=== PATIENT | female | born 1935 | race Caucasian/White ===

== ENCOUNTER 2023-02-25 17:18 | Inpatient (IN) | payer OTHER, MEDICARE ==
[2023-02-25] MEDS ORDERED: ACETAMINOPHEN 325 MG TABLET (FP) PO ONE (17:33)
[2023-02-25] MEDS ORDERED: IBUPROFEN 600 MG TABLET (FP) PO ONE ×2 (17:33→17:46)
[2023-02-25] MEDS ORDERED: ACETAMINOPHEN 325 MG TABLET (FP) ONE (17:46)
[2023-02-25] MEDS ORDERED: KETOROLAC TROMETHAMINE 60 MG/2 ML VIAL IM ONE (20:04)
[2023-02-25] MEDS ORDERED: KETOROLAC TROMETHAMINE 15 MG/ML VIAL ONE (20:07)
[2023-02-25] MEDS ORDERED: morphine CARPU-JECT 2 MG/1 ML DISP.SYRIN IVPUSH ONE (21:11)
[2023-02-25] MEDS ORDERED: morphine SULFATE 4 MG/ML VIAL ONE (21:28)
[2023-02-25 21:30] LABS: HEMATOCRIT 42.8 % (32.4-45.2); HEMOGLOBIN 14.5 G/dL (10.7-15.3); MCH 33.1 pg (25.7-33.7); MCHC 33.8 g/dl (32.0-36.0); MEAN PLT VOLUME 7.9 fl (7.5-11.1); PLATELET COUNT 285.8 10^3/uL (134-434); RBC 4.37 10^6/uL (3.60-5.2); RDW 13.4 % (11.6-15.6); WHITE BLOOD COUNT 13.8 10^3/uL (4.0-10.8)
[2023-02-25 21:42] LABS: PLATELET ESTIMATE ADEQUATE
[2023-02-25 21:42] LABS: ALBUMIN 4.2 g/dl (3.4-5.0); BILIRUBIN,TOTAL 0.9 mg/dl (0.2-1); CALCIUM 10.2 mg/dl (8.5-10); POTASSIUM 4.4 mmol/L (3.5-5.1); TOT PROT 7.1 g/dl (6.4-8.2)
[2023-02-25 22:48] VITALS: BMI 24.3
[2023-02-26] MEDS ORDERED: ACETAMINOPHEN 325 MG TABLET (FP) PO PRN ×2 (00:10→09:44)
[2023-02-26] MEDS: ATENOLOL 25 MG TABLET (FP) PO SCH ×2 (06:21→07:51)
[2023-02-26] MEDS ORDERED: LEVOTHYROXINE NA 100 MCG TABLET (FP) PO SCH (07:00)
[2023-02-26 08:35] LABS: CALCIUM 9.7 mg/dl (8.5-10)
[2023-02-26] MEDS ORDERED: ACETAMINOPHEN 1000 MG/100 ML BAG IVPB PRN (09:40)
[2023-02-26] MEDS ORDERED: oxyCODONE HCL 5 MG TABLET PO PRN (09:49)
[2023-02-26] MEDS ORDERED: LIDOCAINE 5% TOPICAL PATCH TP SCH (10:00)
[2023-02-26] MEDS ORDERED: PANTOPRAZOLE 40 MG TABLET PO SCH (10:00)
[2023-02-26] MEDS ORDERED: PANTOPRAZOLE 20 MG TABLET PO SCH (10:00)
[2023-02-26 10:24] LABS: BASO % 1.1 % (0-2.0); HEMATOCRIT 36.7 % (32.4-45.2); HEMOGLOBIN 12.7 GM/dL (10.7-15.3); MCH 32.7 pg (25.7-33.7); MCHC 34.6 g/dl (32.0-36.0); MEAN CELL VOLUME 94.4 fl (80-96); MONO % 9.3 % (3.8-10.2); NEUT % 65.6 % (42.8-82.8); PLATELET COUNT 246 10^3/uL (134-434); RBC 3.89 M/mm3 (3.60-5.2); RDW 13.3 % (11.6-15.6); WHITE BLOOD COUNT 7.5 K/mm3 (4.0-10.0)
[2023-02-26] MEDS: ACETAMINOPHEN 1000 MG/100 ML BAG IVPB PRN ×2 (10:34→17:44)
[2023-02-26] MEDS: LOSARTAN POTASSIUM 50 MG TABLET PO SCH ×2 (10:38→22:57)
[2023-02-26] MEDS: HEPARIN NA (PORCINE) 5,000 UNITS/ML 1ML VIAL SQ SCH ×2 (14:18→22:51)
[2023-02-26] MEDS ORDERED: LIDOCAINE PATCH REMOVAL MC SCH (22:00)
[2023-02-26 22:34] VITALS: BP 187/56; PULSE 58; RESP 18; TEMP 97.8
[2023-02-27] MEDS ORDERED: LEVOTHYROXINE NA 100 MCG TABLET (FP) PO SCH (07:00)
== END 2023-02-26 23:00 | DRG 536 ==
LOC: FER 17:18 → FM/S 22:06 → INTOOBSV 22:06 → UNDOADMIN 22:06 → OBSVTOIN 02-26 10:09
PROVIDERS: ADMIT Internal Medicine
DX: S32.591A Other specified fracture of right pubis, initial encounter for closed fracture (principal); S32.19XA Other fracture of sacrum, initial encounter for closed fracture; I10 Essential (primary) hypertension; E78.5 Hyperlipidemia, unspecified; E03.9 Hypothyroidism, unspecified; K21.9 Gastro-esophageal reflux disease without esophagitis; G89.29 Other chronic pain; F41.9 Anxiety disorder, unspecified; W01.0XXA Fall on same level from slipping, tripping and stumbling without subsequent striking against object, initial encounter; Y92.098 Other place in other non-institutional residence as the place of occurrence of the external cause
CPT/HCPCS: 0241U-QW; 36415; 70450-TC; 71045-TC-FY; 72125-TC; 72170-TC-FY; 72192-TC; 73502-TC-RT-FY; 73552-TC-RT-FY; 80048; 80053; 81003; 85025; 85027; 93005; 97116-GP; 97162-GP; 99285-25; G0378

== ENCOUNTER 2023-04-15 04:09 | Emergency (ER) | payer OTHER, MEDICARE ==
[2023-04-15 04:20] VITALS: RESP 18; TEMP 97.6; BMI 22.2
[2023-04-15] MEDS ORDERED: LIDOCAINE 5% TOPICAL PATCH ONE (04:24)
[2023-04-15] MEDS ORDERED: ACETAMINOPHEN 325 MG TABLET (FP) PO ONE (04:29)
[2023-04-15] MEDS ORDERED: ACETAMINOPHEN 325 MG TABLET (FP) ONE (04:30)
[2023-04-15] MEDS ORDERED: IBUPROFEN 400 MG TABLET (FP) PO ONE ×2 (04:32→05:12)
[2023-04-15] MEDS ORDERED: LIDOCAINE 5% TOPICAL PATCH TP ONE (05:33)
[2023-04-15] MEDS ORDERED: LIDOCAINE PATCH REMOVAL MC SCH (05:34)
[2023-04-15 05:42] LABS: EPI CELLS 11 /uL (0-25.1); HYALINE CASTS 1 /uL (0-3.1); URINE APPEARANCE Error; URINE BACTERIA 30 /uL (0-1359); URINE BILIRUBIN NEGATIVE (NEGATIVE); URINE COLOR YELLOW; URINE GLUCOSE (UA) NEGATIVE (NEGATIVE); URINE KETONE NEGATIVE (NEGATIVE); URINE LEUK ESTERASE 1+ (NEGATIVE); URINE NITRITE NEGATIVE (NEGATIVE); URINE PROTEIN NEGATIVE (NEGATIVE); URINE RBC 24 /uL (0-23.9); URINE UROBILINOGEN 0.2 mg/dL (0.2-1.0); URINE WBC 25 /uL (0-25.8)
[2023-04-15 06:30] VITALS: BP 148/82; PULSE 64
== END 2023-04-15 06:47 | disposition home or self-care (01) ==
LOC: FER 04:09
DX: M54.50 Low back pain, unspecified (principal)
CPT/HCPCS: 81003; 87086; 99283-25